=== PATIENT | male | born 1970 | race Hispanic/Latino ===

== ENCOUNTER → 2025-02-18 | Day surgery (SDC) | payer OTHER ==
[~2025-02-18] MED LIST: AMLODIPINE BESYL5 MG PO; ATORVASTATIN CA20 MG PO; GLIPIZIDE5 MG PO; GLUCAGON FOR INJ 1 MG VIAL ONE; HYOSCYAMINE SULFATE 0.5 MG/ML INJ ONE; LIDOCAINE HCL 2% LOCAL INJ 5 ML SDV VIAL INJ ONE; METOCLOPRAMIDE HCL 10 MG/2ML VIAL ONE; MOUNJARO5 MG/0.5 M SC; PIOGLITAZONE HC45 MG PO; PROPOFOL IV EMULSION 10 MG/ML 20 ML VIAL ONE; PROPOFOL IV EMULSION 50 ML IV ONE; ZESTRIL10 MG PO
[2025-02-18] MEDS: LACTATED RINGER'S 1,000 ML ONE (13:00)
[2025-02-18 16:26] VITALS: TEMP 98.8
[2025-02-18 16:55] VITALS: BP 105/71; PULSE 84; RESP 16; O2SAT 97
== END | disposition home or self-care (01) ==
LOC: OR 12:28
PROVIDERS: ATTEND Internal Medicine Gastroenterology
DX: Z12.11 Encounter for screening for malignant neoplasm of colon (principal); K29.50 Unspecified chronic gastritis without bleeding; B96.81 Helicobacter pylori [H. pylori] as the cause of diseases classified elsewhere; D12.2 Benign neoplasm of ascending colon; D12.4 Benign neoplasm of descending colon; K64.8 Other hemorrhoids; K21.9 Gastro-esophageal reflux disease without esophagitis; E78.00 Pure hypercholesterolemia, unspecified; E11.22 Type 2 diabetes mellitus with diabetic chronic kidney disease; I12.9 Hypertensive chronic kidney disease with stage 1 through stage 4 chronic kidney disease, or unspecified chronic kidney disease; N18.30 Chronic kidney disease, stage 3 unspecified; E66.811 Obesity, class 1; Z68.33 Body mass index [BMI] 33.0-33.9, adult; Z79.84 Long term (current) use of oral hypoglycemic drugs; Z79.85 Long-term (current) use of injectable non-insulin antidiabetic drugs; Z79.899 Other long term (current) drug therapy; Z01.810 Encounter for preprocedural cardiovascular examination
CPT/HCPCS: 36415; 43239; 45378; 45385; 82948; 93005; J1610; J1980; J2003; J2470; J2765